=== PATIENT | male | born 2000 | race African-American/Black ===

== ENCOUNTER 2020-07-20 15:25 | Emergency (ER) | payer SELFPAY ==
[~2020-07-20 15:25] MED LIST: Iopamidol 370 76% 100 ML VIAL ONE
[2020-07-20] MEDS ORDERED: Ketamine 50 MG/ML (10ML VIAL) ONE (15:36)
[2020-07-20] MEDS ORDERED: Lorazepam 2 MG/ML VIAL ONE (15:51)
[2020-07-20 16:03] LABS: INR-International Normal Ratio 1.1; PTT 26.8 sec (22.9-36.1)
[2020-07-20 16:11] LABS: Anion Gap 23 mmol/L (10-20); BUN (Urea Nitrogen) 12 mg/dL (8.4-21.0); Calc. Creatinine Clearance 0 mL/min (70-130); Calcium 7.6 mg/dL (7.8-10.44); Carbon Dioxide 16 mmol/L (22-29); Chloride 108 mmol/L (98-107); Glucose 86 mg/dL (70-105); Sodium 144 mmol/L (136-145)
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
[2020-07-20 16:33] LABS: Potassium 2.6 mmol/L (3.5-5.1)
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
== END 2020-07-20 16:54 | disposition short-term general hospital (02) ==
LOC: MADERS 15:25
DX: S27.0XXA Traumatic pneumothorax, initial encounter (principal); S22.43XA Multiple fractures of ribs, bilateral, initial encounter for closed fracture; S01.81XA Laceration without foreign body of other part of head, initial encounter; R00.0 Tachycardia, unspecified; R58 Hemorrhage, not elsewhere classified; V86.99XA Unspecified occupant of other special all-terrain or other off-road motor vehicle injured in nontraffic accident, initial encounter
CPT/HCPCS: 32551; 36415; 36430; 70450; 71260; 72125; 74177; 85025; 86850; 86900; 86901; 96374; 96375; 96376; G0390; J2060; P9016; Q9967